=== PATIENT | male | born 1970 | race African-American/Black ===

== ENCOUNTER 2017-01-14 10:48 | Inpatient (IN) ==
[2017-01-14] MEDS ORDERED: ACETAMINOPHEN 325 MG TABLET PEG PRN (17:21)
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
[2017-01-14] MEDS: ENOXAPARIN 40 MG/0.4 ML SYRINGE SUBCUT SCH (18:20)
[2017-01-14 18:56] LABS: Basophils % 0.3 % (0.0-0.8); Eosinophils % 0.4 % (0.00-10.9); Hematocrit 32.5 VOL% (42.0-52.0); Hemoglobin 11.4 GM/DL (14.0-18.0); Immature Granulocytes % 0.5 %; Immature Granulocytes Absolute 0.05 #; Lymphocytes # 0.9 10*3/uL (1.4-4.0); Lymphocytes % 9.6 % (21.2-54.2); Mean Corpuscular HGB Conc 35.1 GM/DL (32-36); Mean Corpuscular Hemoglobin 29 PG (27-34); Mean Corpuscular Volume 83.8 FL (87-102); Monocytes # 0.9 10*3/uL (0.11-0.8); Monocytes % 9.3 % (1.7-12.7); Neutrophils # 7.5 10*3/uL (1.4-7.4); Neutrophils % 79.9 % (38.7-73.9); Platelet Count 398 T/CUMM (130-400); Red Blood Count 3.88 MC/CUMM (3.8-5.5); Red Cell Distribution Width 12.9 % (9.3-17.3); White Blood Count 9.4 T/CUMM (4-12)
[2017-01-14 19:19] LABS: Bilirubin,Total 0.4 MG/DL (0.2-1.0); Calcium 8.5 MG/DL (8.5-10.1); Magnesium 1.8 MG/DL (1.8-2.4); Osmolality,Calculated 256.1 MOS/KG (273-304); Total Protein 6.4 G/DL (6.4-8.3)
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
[2017-01-15] MEDS: ENOXAPARIN 40 MG/0.4 ML SYRINGE SUBCUT SCH (18:33)
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
[2017-01-16] MEDS: BACITRACIN OINT 0.9 GM PACK TOP SCH ×2 (10:33→20:22)
--- NOTE | 2017-01-16 11:36 | General Surgery Consult Note ---
Assessment and Plan (1) Pain around PEG tube site Status: Acute Assessment and plan: The patient has pus draining around his gastrostomy tube. The flange on the tube was cinched down pretty tightly and I am concerned that may be his internal button has eroded through his gastric wall and caused an abscess there. I have ordered a CT scan with Gastrografin to further evaluate this to see if any further treatment is necessary. I would leave the tube clamped or put it on drainage for now. Current Visit: Yes History of Present Illness Chief complaint: Abdominal pain History of present illness: Mr. Tan is a 46 year old male who had a gastrostomy tube placed by corridor redevelopment manager less than 2 weeks ago at the [facility] and was admitted here with pain at the gastrostomy tube site. He does moan in pain but does not really communicate much with me otherwise. Nursing gave the history to me. Allergies Allergy/AdvReac Type Severity Reaction Status Date / Time Unable to Obtain Allergy Verified 01/14/17 16:55 Medical,Surgical,& Family Hx - Medical History Cardio: History of: Hypertension - Family History Family History: Reports;: Family Hypertension - Social History Smoking Status: Former smoker - Constitutional Constitutional: Present: as per HPI - EENT Nose, mouth and throat: Present: as per HPI - Cardiovascular Cardiovascular: Present: as per HPI - Respiratory Respiratory: Present: as per HPI - Gastrointestinal Gastrointestinal: Present: as per HPI - Genitourinary Genitourinary: Present: as per HPI - Musculoskeletal Musculoskeletal: Present: as per HPI - Neurological Neurological: Present: as per HPI - Endocrine Endocrine: Present: as per HPI Hematologic/Lymphatic: Present: as per HPI Exam - Constitutional Vitals: Period Temp Pulse Resp BP Sys/White Pulse Ox Last 24 Hr 97.4 F-99.9 F 68-95 18-22 135-174/91-106 96-100 General appearance: normal weight, no acute distress - Head Head exam: Present: normal inspection, normocephalic - Eye Eye exam: Present: EOMI - ENT ENT exam: Present: normal exam Mouth exam: Present: normal external inspection - Neck Neck exam: Present: normal inspection, trachea midline - Respiratory Respiratory exam: Present: clear to auscultation bilaterally. Absent: accessory muscle use, chest wall tenderness - Cardiovascular Cardiovascular exam: Present: tachycardia. Absent: irregular rhythm, systolic murmur - GI/Abdominal GI/Abdominal exam: Present: guarding, tenderness, rebound, soft, other (There is pus coming out around the gastrostomy tube with significant erythema and induration there.) - Extremities Exam Extremities exam: Present: normal inspection, normal capillary refill - Back Exam Back exam: Present: normal inspection - Neurological Exam Neurological exam: Present: alert, oriented X3 Speech: Present: normal - Skin Skin exam: Present: normal color, warm Results - Labs CBC & BMP: 01/14/17 18:24 01/16/17 04:36
--- NOTE | 2017-01-16 14:58 | CT Report ---
CT abdomen pelvis w con Indication: Generalized abdominal pain. Comparison: None. Technique: CT of the abdomen and pelvis was performed following administration of intravenous contrast. The CT examination was performed using one or more of the following dose reduction techniques: Automatic exposure control, adjustment of the mA and kV according to patient size, or iterative reconstruction techniques. Findings: Atelectatic changes are present within the right as well as left lower lobe. The heart size is borderline. Liver demonstrates no focal abnormality. The gallbladder is unremarkable. Spleen is normal in size. Punctate calcification within the spleen suggest prior granulomatous disease. Pancreatic duct is minimally prominent. Extrahepatic bile duct is normal in size. This prominence of the main pancreatic duct is a nonspecific finding. The adrenal glands and kidneys demonstrate no acute findings. Gastrostomy tube is present which appears to terminate within the stomach. The stomach demonstrates no abnormality. Contrast is present within small bowel loops which have air-fluid levels within them and some of the loops particularly within the upper and right upper abdomen are upper limits of normal in size to minimally distended measuring 3.5 cm. Within the right pelvis, there is a [id number] amount of fluid. In addition, there is a round tubular structure measuring up to 12 mm in transverse dimension as demonstrated on image #121. This demonstrates peripheral enhancement and is compatible with appendix. Bowel loops within the pelvis are not well opacified. Large bowel demonstrates no significant abnormality. Soft tissues of the body wall, image bony structures, demonstrate no significant abnormalities. Impression: 1. The bowel gas pattern is somewhat nonspecific. Contrast is partially present throughout small bowel however small bowel loops demonstrate multiple air-fluid levels as well as. Upper limits of normal in size to minimally enlarged measuring 3.5 cm. Differential considerations include ileus as well as developing small bowel obstruction. A delayed KUB may be useful to further document progression of contrast through bowel. 2. A moderate to large amount of free fluid is suggested within the pelvis. Adjacent this free fluid or within this free fluid is a tubular blind structure which represents appendix. The appendiceal tip is enlarged measuring 12 mm within the described fluid. Acute tip appendicitis and adjacent abscess are not excluded. 3. Gastrostomy tube present without evidence of complication or leakage. Other findings as detailed. Findings were discussed with Dr. Valentine at 1455 hours, date of exam. 01/16/2017 2:46 PM PROCEDURE INTERPRETED AT [facility] DEPARTMENT OF RADIOLOGY Final Report Signed by: Dr. Donato [facility]
[2017-01-16] MEDS: SODIUM BICARBONATE 650 MG TABLET PEG SCH ×3 (15:51→22:09)
[2017-01-16] MEDS: SODIUM CHLORIDE 1 GM TABLET PO SCH (15:52)
[2017-01-16] MEDS: DEXTROSE 5% NACL 0.45% 1,000 ML IV SCH (16:15)
[2017-01-16] MEDS: ENOXAPARIN 40 MG/0.4 ML SYRINGE SUBCUT SCH (17:58)
[2017-01-16] MEDS: PIPERACILLIN/TAZOBACTAM 3,375 MG in SODIUM CHLORIDE 0.9% 100 ML IV SCH (18:00)
[2017-01-17] MEDS: PIPERACILLIN/TAZOBACTAM 3,375 MG in SODIUM CHLORIDE 0.9% 100 ML IV SCH ×2 (02:12→10:23)
[2017-01-17] MEDS: DEXTROSE 5% NACL 0.45% 1,000 ML IV SCH (07:20)
[2017-01-17 07:48] LABS: Basophils % 0.5 % (0.0-0.8); Eosinophils # 0.1 10*3/uL (0.0-0.87); Eosinophils % 1.5 % (0.00-10.9); Hematocrit 30.7 VOL% (42.0-52.0); Hemoglobin 10.9 GM/DL (14.0-18.0); Immature Granulocytes % 0.5 %; Immature Granulocytes Absolute 0.03 #; Lymphocytes # 1.1 10*3/uL (1.4-4.0); Lymphocytes % 16.3 % (21.2-54.2); Mean Corpuscular HGB Conc 35.5 GM/DL (32-36); Mean Corpuscular Hemoglobin 29 PG (27-34); Mean Corpuscular Volume 82.7 FL (87-102); Monocytes # 0.7 10*3/uL (0.11-0.8); Monocytes % 10.8 % (1.7-12.7); Neutrophils # 4.6 10*3/uL (1.4-7.4); Neutrophils % 70.4 % (38.7-73.9); Platelet Count 370 T/CUMM (130-400); Red Blood Count 3.71 MC/CUMM (3.8-5.5); Red Cell Distribution Width 12.7 % (9.3-17.3); White Blood Count 6.6 T/CUMM (4-12)
[2017-01-17 08:21] LABS: Calcium 8.9 MG/DL (8.5-10.1); Magnesium 1.8 MG/DL (1.8-2.4); Osmolality,Calculated 251.5 MOS/KG (273-304); Potassium 4.3 MMOL/L (3.5-5.1)
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
[2017-01-17] MEDS: cloNIDine 0.3 MG/24 HR PATCH TRANSDERM SCH (11:03)
[2017-01-17] MEDS: BACITRACIN OINT 0.9 GM PACK TOP SCH ×2 (11:03→21:49)
[2017-01-17] MEDS: SODIUM CHLORIDE 1 GM TABLET PO SCH (11:03)
[2017-01-17] MEDS: CEFUROXIME 50 MG/ML 100 ML/BOTTLE PEG SCH ×2 (11:59→21:49)
[2017-01-17] MEDS: SODIUM BICARBONATE 650 MG TABLET PEG SCH (12:06)
--- NOTE | 2017-01-17 12:21 | General Surgery Progress Note ---
Assessment and Plan (1) Pain around PEG tube site Status: Acute Assessment and plan: The patient will be treated with antibiotics for his abscess around his gastrostomy tube. I do not believe he has appendicitis. He is responding to antibiotics so we will transition to p.o. and stop his IV antibiotics. His PEG tube can be used for meds and flushes but I would not start tube feeds until we can get a look internally with an endoscopy in the next couple days to make sure that the button of the PEG tube has not caused necrosis of the gastric wall. I will continue to follow him. He is having bowel movements per the nursing so I do not think we need to worry about bowel obstruction in regards to some of the CT findings. Current Visit: Yes Subjective Patient reports: Present: no new complaints, afebrile Narrative: The patient was evaluated with a CT scan yesterday which showed no intra- abdominal abscess or fluid collections around the gastrostomy tube site. There was some question of appendicitis and some free fluid in the pelvis but no surrounding inflammatory changes. The patient is completely asymptomatic in the right lower quadrant. His wound looks a lot better today after draining the purulence around the side of the tube. He has been placed on cefuroxime by PEG tube because of inadequate IV access. Exam - Constitutional Vitals: Period Temp Pulse Resp BP Sys/White Pulse Ox Last 24 Hr 98 F-99.2 F 62-70 18-20 157-168/93-95 98-99 General appearance: normal weight, no acute distress - Head Head exam: Present: normal inspection, normocephalic - Eye Eye exam: Present: EOMI Pupils: Present: ANDREW - ENT ENT exam: Present: normal exam Mouth exam: Present: normal external inspection - Neck Neck exam: Present: normal inspection, trachea midline - Respiratory Respiratory exam: Present: clear to auscultation bilaterally. Absent: accessory muscle use, chest wall tenderness - Cardiovascular Cardiovascular exam: Present: RRR. Absent: systolic murmur, tachycardia - GI/Abdominal GI/Abdominal exam: Present: tenderness, soft, other (There is much less induration and cellulitis around the PEG tube. There is no further purulent drainage. The patient is completely nontender in the right lower quadrant.) - Extremities Exam Extremities exam: Present: normal inspection, normal capillary refill - Back Exam Back exam: Present: normal inspection - Neurological Exam Neurological exam: Present: alert, oriented X3 Speech: Present: normal - Skin Skin exam: Present: normal color, warm Results - Labs CBC & BMP: 01/17/17 07:16 01/17/17 07:16 - Diagnostic Findings Procedure: CT Abdomen and Pelvis: image reviewed by me, report reviewed by me ( Per my review, the appendix appears slightly enlarged but there is no surrounding inflammatory changes. There is some fluid in the pelvis. Is no leakage around the gastrostomy tube.)
[2017-01-17] MEDS: SODIUM BICARBONATE 650 MG TABLET PO SCH ×2 (14:50→21:47)
[2017-01-17] MEDS: ENOXAPARIN 40 MG/0.4 ML SYRINGE SUBCUT SCH (17:12)
[2017-01-18 05:33] LABS: Basophils # 0.1 10*3/uL (0.0-0.2); Basophils % 1.2 % (0.0-0.8); Eosinophils # 0.1 10*3/uL (0.0-0.87); Eosinophils % 2.6 % (0.00-10.9); Hematocrit 33.7 VOL% (42.0-52.0); Hemoglobin 11.5 GM/DL (14.0-18.0); Immature Granulocytes % 0.4 %; Immature Granulocytes Absolute 0.02 #; Lymphocytes % 20.1 % (21.2-54.2); Mean Corpuscular HGB Conc 34.1 GM/DL (32-36); Mean Corpuscular Hemoglobin 29 PG (27-34); Mean Corpuscular Volume 83.4 FL (87-102); Mean Platelet Volume 9.3 FL (9.6-12.0); Monocytes # 0.7 10*3/uL (0.11-0.8); Monocytes % 14.2 % (1.7-12.7); Neutrophils % 61.5 % (38.7-73.9); Platelet Count 388 T/CUMM (130-400); Red Blood Count 4.04 MC/CUMM (3.8-5.5); Red Cell Distribution Width 12.7 % (9.3-17.3); White Blood Count 4.9 T/CUMM (4-12)
[2017-01-18 06:02] LABS: Calcium 9.2 MG/DL (8.5-10.1); Osmolality,Calculated 254.2 MOS/KG (273-304); Potassium 4.7 MMOL/L (3.5-5.1)
--- NOTE | 2017-01-18 07:25 | General Surgery Progress Note ---
Assessment and Plan (1) Pain around PEG tube site Status: Acute Assessment and plan: I will discuss the patient's care with Dr. Ruvalcaba today. I would prefer to get an endoscopy prior to starting tube feeds to make sure that there is no necrosis of the gastric wall. Otherwise continue current care and antibiotic. Current Visit: Yes Subjective Patient reports: Present: no new complaints, flatus, bowel movement, afebrile. Absent: blood in stool Exam - Constitutional Vitals: Period Temp Pulse Resp BP Sys/White Pulse Ox Last 24 Hr 97.5 F-99.4 F 65-94 17-20 135-170/89-95 97-100 General appearance: normal weight, no acute distress - Head Head exam: Present: normal inspection, normocephalic - Eye Eye exam: Present: EOMI - ENT ENT exam: Present: normal exam Mouth exam: Present: normal external inspection, normal voice - Neck Neck exam: Present: normal inspection, trachea midline - Respiratory Respiratory exam: Present: clear to auscultation bilaterally. Absent: accessory muscle use, chest wall tenderness - Cardiovascular Cardiovascular exam: Present: RRR. Absent: systolic murmur, tachycardia - GI/Abdominal GI/Abdominal exam: Present: normal bowel sounds, tenderness (The patient is color depositing machine tender around the PEG tube site), soft, other (The PEG tube site has no erythema or induration today. There is no further purulent drainage. The flange was tightened back down just a little bit to about 3 cm.) - Extremities Exam Extremities exam: Present: normal inspection, normal capillary refill - Back Exam Back exam: Present: normal inspection - Neurological Exam Neurological exam: Present: alert Speech: Present: normal - Skin Skin exam: Present: normal color, warm Results - Labs CBC & BMP: 01/18/17 04:38 01/18/17 04:38
--- NOTE | 2017-01-18 10:00 | Gastrointestinal Progress Note ---
Assessment and Plan (1) Pain around PEG tube site Status: Acute Assessment and plan: 01/18-Less discomfort noted with exam from admission. Afebrile without leukocytosis. 2 feedings to be restarted today and continue to assess. Plan an addendum to followed by Dr. Ruvalcaba. Current Visit: Yes Gastroenterology - PN: Subj Interval history: CC: Abdominal pain/questionable PEG tube infection Patient is seen, opens eyes to verbal stimuli but no verbal communication. Abdomen is soft, nontender. Patient does not appear to react to examination of his PEG tube today. No active draining noted at site today. Tube feedings are being held at present time however Dr. Ruvalcaba has discussed with Dr. Valentine regarding this and his tube feedings are to be restarted today. If patient tolerates these and we will hold off on endoscopy at this time abdomen is soft, nontender. He has no leukocytosis and is afebrile today. Sodium level is noted at 127. ROS: Denies shortness of breath or chest pain. Exam (Progress Note) - Constitutional Vitals: Period Temp Pulse Resp BP Sys/White Pulse Ox Last 24 Hr 97.5 F-99.4 F 65-94 17-20 135-170/89-95 97-100 General appearance: no acute distress, under weight - Head Head exam: Present: normal inspection, normocephalic - Eye Eye exam: Present: other (Lids and conjunctive are unremarkable). Absent: scleral icterus - ENT ENT exam: Present: normal exam, normal oropharynx - Neck Neck exam: Present: normal inspection - Respiratory Respiratory exam: Present: clear to auscultation bilaterally. Absent: rales, rhonchi, wheezes - Cardiovascular Cardiovascular exam: Present: regular rate and rhythm. Absent: diastolic murmur , JVD, systolic murmur - GI/Abdominal GI/Abdominal exam: Present: normal bowel sounds, soft. Absent: ascites, distended, mass, organomegaly, tenderness - Extremities Exam Extremities exam: Present: normal inspection, full ROM - Back Exam Back exam: Present: normal inspection - Neurological Exam Neurological exam: Present: alert, altered - Psychiatric Psychiatric exam: Present: normal affect, other - Skin Skin exam: Present: normal color, warm, dry Results - Labs CBC & BMP: 01/18/17 04:38 01/18/17 04:38 Lab Results: I have reviewed the past 24 hour labs
[2017-01-18] MEDS: SODIUM BICARBONATE 650 MG TABLET PO SCH ×3 (10:14→20:58)
[2017-01-18] MEDS: BACITRACIN OINT 0.9 GM PACK TOP SCH ×2 (10:14→20:59)
[2017-01-18] MEDS: CEFUROXIME 50 MG/ML 100 ML/BOTTLE PEG SCH ×2 (10:14→20:58)
[2017-01-18] MEDS: SODIUM CHLORIDE 1 GM TABLET PO SCH (10:14)
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
[2017-01-18] MEDS ORDERED: TUBERCULIN SKIN TEST 0.1 ML SYRINGE INTRADERM ONE (15:29)
--- NOTE | 2017-01-18 15:30 | Case Mgmt Physician Query Form ---
TB Signs and Symptoms Screening ([place]) INSTRUCTIONS: To be completed annually on residents/staff with a significant Tuberculin Skin Test (TST) upon admission/hire or a prior significant TST. To be completed on all staff at hire. Please respond to each listed symptom with an (X) in either the "YES" or "NO" box. Do you currently have any of the following symptoms: YES NO PT UNABLE TO COMMUNICATE ( ) ( ) A cough If yes, is it: ( ) Productive ( ) Non- productive ( ) ( ) Hemoptysis (spitting up blood) ( ) ( ) Chest pains ( ) ( ) Weight Loss ( ) ( x) Fever ( ) ( ) Night Sweats ( ) ( ) Weakness ( ) ( ) Loss of Appetite ( ) ( ) Difficulty Breathing If you answered YES" to any of the above questions, how long have symptoms been present? Comments: If you have any questions, please contact me. Thank you, Lucía PIMENTEL P: [phone] F: [phone] E: [email or web address]
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
--- NOTE | 2017-01-18 16:44 | XRay Report ---
XR chest 1V Indication: jail placement Comparison: Chest x-ray 10/11/2013 Technique: Portable AP chest was performed. Findings: Heart size, mediastinal contour, and hilar structures demonstrate no significant abnormalities. The lung parenchyma is clear. Bones and soft tissues demonstrate no significant abnormalities. Impression: 1. No evidence of acute pathology. 01/18/2017 4:41 PM PROCEDURE INTERPRETED AT [facility] DEPARTMENT OF RADIOLOGY Final Report Signed by: Dr. Donato Wheeler
--- NOTE | 2017-01-18 16:52 | CT Report ---
History: Traumatic brain injury. Subarachnoid hemorrhage. Date: 01/18/2017 Study: CT head without contrast Comparison exam: CT head October 11, 2013. The patient reportedly has had numerous brain imaging studies performed at [facility] earlier this month, though none of those studies are currently available for direct visual comparison. Transaxial CT sections were obtained through the head without IV contrast. This CT exam was performed using one or more the following dose reduction techniques: Automated exposure control, adjustment of the MA and/or KV according to patient size, or use of iterative reconstruction technique. There is a hyperdense parenchymal hematoma in the left temporal lobe measuring at least 43 x 26 mm maximum dimensions. There is some mild surrounding vasogenic edema. There is no parenchymal hemorrhage otherwise. There is a small subacute subdural hematoma in the left parietal convexity area, hypodense to brain and minimally hyperdense to CSF, measuring roughly 4.7 mm transverse thickness. There is some mild residual 5.2 mm [id number] midline shift. The basal cisterns are still well-maintained. There are some occasional scattered subcortical and subependymal punctate calcifications as on the [address] Consider underlying calcified granuloma formation as well as calcified tubers as before. There is a nondisplaced fracture through the lateral wall of the right orbit posteriorly, presumably subacute. There is some residual mild right frontal scalp soft tissue swelling and contusion. Impression: 4.3 cm hematoma left temporal lobe, presumably posttraumatic 5 mm [id number] midline shift Subacute left parietal subdural hematoma Previous outside studies from [facility] are not currently available for comparison Subacute fracture lateral wall right orbit posteriorly PROCEDURE INTERPRETED AT [facility] DEPARTMENT OF RADIOLOGY Final Report Signed by: Dr. Hope Ruvalcaba
[2017-01-18] MEDS: ENOXAPARIN 40 MG/0.4 ML SYRINGE SUBCUT SCH (18:14)
[2017-01-19 05:59] LABS: Calcium 9.2 MG/DL (8.5-10.1); Osmolality,Calculated 255.2 MOS/KG (273-304); Potassium 4.7 MMOL/L (3.5-5.1)
--- NOTE | 2017-01-19 07:19 | General Surgery Progress Note ---
Assessment and Plan (1) Pain around PEG tube site Status: Acute Assessment and plan: I had reordered tube feeds yesterday but none are hanging this morning. I am not sure what happened on this. There were no nurses rounding with me today and the patient could not give me a history. I will sign off at this time. It is okay to resume tube feeds through the PEG tube. I would recommend treating the patient with a course of 2 weeks of antibiotics to cover gram-negative and anaerobic bacteria. Call back with any questions. Current Visit: Yes Subjective Patient reports: Present: no new complaints, afebrile. Absent: vomiting Exam - Constitutional Vitals: Period Temp Pulse Resp BP Sys/White Pulse Ox Last 24 Hr 98.2 F-99.1 F 59-79 18-20 112-147/66-90 96-100 General appearance: normal weight, no acute distress - Head Head exam: Present: normal inspection, normocephalic - Eye Eye exam: Present: EOMI Pupils: Present: ANDREW - ENT ENT exam: Present: normal exam Mouth exam: Present: normal external inspection, normal voice - Neck Neck exam: Present: normal inspection, trachea midline - Respiratory Respiratory exam: Present: clear to auscultation bilaterally. Absent: accessory muscle use, chest wall tenderness - Cardiovascular Cardiovascular exam: Present: RRR. Absent: systolic murmur, tachycardia - GI/Abdominal GI/Abdominal exam: Present: soft, other (The prior area of cellulitis around the PEG tube is completely resolved and there is no further purulent drainage.) . Absent: tenderness, rebound - Extremities Exam Extremities exam: Present: normal inspection, normal capillary refill - Back Exam Back exam: Present: normal inspection - Neurological Exam Neurological exam: Present: alert, oriented X3 Speech: Present: normal - Skin Skin exam: Present: normal color, warm Results - Labs CBC & BMP: 01/18/17 04:38 01/19/17 05:10
[2017-01-19] MEDS: CEFUROXIME 50 MG/ML 100 ML/BOTTLE PEG SCH ×2 (10:07→21:37)
[2017-01-19] MEDS: SODIUM CHLORIDE 1 GM TABLET PO SCH (10:07)
[2017-01-19] MEDS: BACITRACIN OINT 0.9 GM PACK TOP SCH ×2 (10:07→21:38)
[2017-01-19] MEDS: SODIUM BICARBONATE 650 MG TABLET PO SCH ×3 (10:07→21:37)
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
--- NOTE | 2017-01-19 16:15 | Neurology Progress Note ---
Neurology - PN : Subjective Interval history: Patient seems to be doing okay. Repeat CAT scan results noted. He is quite impaired cognitively at this point Exam (Progress Note) - Constitutional Vitals: Period Temp Pulse Resp BP Sys/White Pulse Ox Last 24 Hr 97.5 F-99.1 F 59-73 18-20 92-136/57-87 96-100 Exam: GENERAL: Patient is in no acute distress. NECK: Neck is supple. There is no JVD. No carotid bruits present. No thyroid masses. CVS: First and second heart sounds are normal. There is no S3 present. Regular rate and rhythm. RESPIRATORY: Lungs are clear to auscultation without any rales or rhonchi. ABDOMEN: Soft and non-tender. Bowel sounds are present. There is no hepatosplenomegaly. EXT: There is no palpable edema. Peripheral pulses are present. Skin: No rashes Central Nervous system: General: Alert, awake Speech: Nonfluent Comprehension: Impaired Facial expressions: Normal Cranial Nerves: Pupils are equally reactive to light. Extraocular movements are intact. No facial asymmetry is seen Motor: Bulk and Tone is normal. Strength unable to assess due to poor cooperation Sensory: Unreliable Reflexes: 2+ and symmetrical Cerebellar function: Cannot be assessed Toes: Equivocal Gait: Cannot be assessed Results - Labs CBC & BMP: 01/18/17 04:38 01/19/17 05:10 Assessment and Plan (1) Traumatic brain injury Status: Acute Assessment and plan: continue ST, PT and OT. Cognition probably will improve once blood gets reabsorbed completely. Watch for seizures. Current Visit: Yes Qualifiers: Encounter type: initial encounter
[2017-01-19] MEDS: ENOXAPARIN 40 MG/0.4 ML SYRINGE SUBCUT SCH ×2 (16:43→17:44)
[2017-01-20] MEDS: CEFUROXIME 50 MG/ML 100 ML/BOTTLE PEG SCH ×2 (09:31→22:04)
[2017-01-20] MEDS: SODIUM BICARBONATE 650 MG TABLET PO SCH ×3 (09:31→22:06)
[2017-01-20] MEDS: BACITRACIN OINT 0.9 GM PACK TOP SCH ×2 (09:31→22:10)
[2017-01-20] MEDS: SODIUM CHLORIDE 1 GM TABLET PO SCH (09:31)
--- NOTE | 2017-01-20 15:52 | Neurology Progress Note ---
Neurology - PN : Subjective Interval history: Patient seems to be doing a little better. Less agitated and restless. No new problems reported. No seizures. Exam (Progress Note) - Constitutional Vitals: Period Temp Pulse Resp BP Sys/White Pulse Ox Last 24 Hr 96.7 F-98.9 F 58-78 17-20 100-121/57-74 99-100 Exam: GENERAL: Patient is in no acute distress. NECK: Neck is supple. There is no JVD. No carotid bruits present. No thyroid masses. CVS: First and second heart sounds are normal. There is no S3 present. Regular rate and rhythm. RESPIRATORY: Lungs are clear to auscultation without any rales or rhonchi. ABDOMEN: Soft and non-tender. Bowel sounds are present. There is no hepatosplenomegaly. EXT: There is no palpable edema. Peripheral pulses are present. Skin: No rashes Central Nervous system: General: Alert, awake Speech: Nonfluent Comprehension: Impaired Facial expressions: Normal Cranial Nerves: Pupils are equally reactive to light. Extraocular movements are intact. No facial asymmetry is seen Motor: Bulk and Tone is normal. Strength unable to assess due to poor cooperation Sensory: Unreliable Reflexes: 2+ and symmetrical Cerebellar function: Cannot be assessed Toes: Equivocal Gait: Cannot be assessed Results - Labs CBC & BMP: 01/18/17 04:38 01/19/17 05:10 Assessment and Plan (1) Traumatic brain injury Status: Acute Assessment and plan: continue ST, PT and OT. Cognition probably will improve once blood gets reabsorbed completely. No further neuro recommendations. Sign off please call as needed Current Visit: Yes Qualifiers: Encounter type: initial encounter
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
[2017-01-20] MEDS: ENOXAPARIN 40 MG/0.4 ML SYRINGE SUBCUT SCH (16:36)
[2017-01-21 06:34] LABS: Phosphorous 4.1 MG/DL (2.5-4.9); Potassium 4.4 MMOL/L (3.5-5.1); Prealbumin 23.7 MG/DL (20-40)
[2017-01-21 06:47] LABS: Basophils % 0.8 % (0.0-0.8); Eosinophils # 0.1 10*3/uL (0.0-0.87); Eosinophils % 2.1 % (0.00-10.9); Hematocrit 33.2 VOL% (42.0-52.0); Hemoglobin 11.3 GM/DL (14.0-18.0); Immature Granulocytes % 0.8 %; Immature Granulocytes Absolute 0.04 #; Lymphocytes % 18.1 % (21.2-54.2); Mean Corpuscular Hemoglobin 29 PG (27-34); Mean Corpuscular Volume 84.3 FL (87-102); Mean Platelet Volume 9.1 FL (9.6-12.0); Monocytes # 0.6 10*3/uL (0.11-0.8); Monocytes % 11.5 % (1.7-12.7); Neutrophils # 3.5 10*3/uL (1.4-7.4); Neutrophils % 66.7 % (38.7-73.9); Platelet Count 326 T/CUMM (130-400); Red Blood Count 3.94 MC/CUMM (3.8-5.5); Red Cell Distribution Width 13.1 % (9.3-17.3); White Blood Count 5.2 T/CUMM (4-12)
[2017-01-21] MEDS: SODIUM BICARBONATE 650 MG TABLET PO SCH (08:50)
[2017-01-21] MEDS: SODIUM CHLORIDE 1 GM TABLET PO SCH (08:50)
[2017-01-21] MEDS: CEFUROXIME 50 MG/ML 100 ML/BOTTLE PEG SCH (10:36)
[2017-01-21] MEDS: BACITRACIN OINT 0.9 GM PACK TOP SCH (10:36)
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
[2017-01-21] MEDS: ENOXAPARIN 40 MG/0.4 ML SYRINGE SUBCUT SCH (17:25)
[2017-01-22] MEDS: CEFUROXIME 50 MG/ML 100 ML/BOTTLE PEG SCH ×3 (00:17→21:42)
[2017-01-22] MEDS: BACITRACIN OINT 0.9 GM PACK TOP SCH ×3 (00:17→21:42)
[2017-01-22 04:55] LABS: Calcium 8.7 MG/DL (8.5-10.1); Potassium 4.4 MMOL/L (3.5-5.1)
--- NOTE | 2017-01-22 14:21 | Hospitalist Progress Note ---
Assessment and Plan (1) Traumatic brain injury Status: Acute Assessment and plan: Patient post TBI awake and alert with improvement over last few days and the able to eat well. Hematoma left temporal lobe on CT scan. still not oriented being followed by Dr. Lopez. Current Visit: Yes Qualifiers: Encounter type: initial encounter (2) Anemia Status: Acute Assessment and plan: Stable Current Visit: Yes (3) Hyponatremia Status: Acute Assessment and plan: Resolved sodium level is stable Current Visit: Yes (4) Pain around PEG tube site Status: Acute Assessment and plan: Pain is resolved abdomen soft nontender Current Visit: Yes Hospitalist: Subjective Interval history: Remained alert. Unable to get subjective information he is still not able to answer questions except his name . He has been able to eat well. Feeding type is not being used Exam - Constitutional Vitals: Period Temp Pulse Resp BP Sys/White Pulse Ox Last 24 Hr 97.5 F-98.0 F 57-83 16-20 106-144/67-89 99-100 General appearance: no acute distress - Respiratory Respiratory exam: Present: clear to auscultation bilaterally. Absent: rales, rhonchi - Cardiovascular Cardiovascular exam: Present: regular rate and rhythm. Absent: tachycardia - GI/Abdominal GI/Abdominal exam: Present: normal bowel sounds, soft (Feeding tube in place). Absent: distended, tenderness - Neurological Exam Neurological exam: Present: other (Awake and alert but not able to follow commands and not oriented. He is not able to make meaningful conversation. Results - Labs CBC & BMP: 01/21/17 04:00 01/22/17 03:46 Lab Results: I have reviewed the past 24 hour labs
[2017-01-22] MEDS: ENOXAPARIN 40 MG/0.4 ML SYRINGE SUBCUT SCH (18:00)
[2017-01-23] MEDS: CEFUROXIME 50 MG/ML 100 ML/BOTTLE PEG SCH ×2 (09:56→21:51)
[2017-01-23] MEDS: BACITRACIN OINT 0.9 GM PACK TOP SCH ×2 (09:56→21:51)
--- NOTE | 2017-01-23 16:37 | Hospitalist Progress Note ---
Assessment and Plan (1) Traumatic brain injury Status: Acute Current Visit: Yes Qualifiers: Encounter type: initial encounter (2) Hyponatremia Status: Acute Current Visit: Yes (3) Anemia Status: Acute Current Visit: Yes Hospitalist: Subjective Interval history: No acute events overnight. Exam - Constitutional Vitals: Period Temp Pulse Resp BP Sys/White Pulse Ox Last 24 Hr 97.9 F-99.1 F 65-91 16-20 134-166/75-99 96-100 General appearance: normal weight - Head Head exam: Present: normocephalic, atraumatic - Eye Eye exam: Present: EOMI Pupils: Present: ANDREW - ENT ENT exam: Present: normal exam - Neck Neck exam: Present: normal inspection - Respiratory Respiratory exam: Present: clear to auscultation bilaterally. Absent: wheezes - Cardiovascular Cardiovascular exam: Present: regular rate and rhythm - GI/Abdominal GI/Abdominal exam: Present: normal bowel sounds, soft. Absent: tenderness, rebound - Extremities Exam Extremities exam: Present: normal inspection - Back Exam Back exam: Present: normal inspection - Neurological Exam Neurological exam: Present: alert - Psychiatric Psychiatric exam: Present: normal affect, normal mood - Skin Skin exam: Present: warm, intact Results - Labs CBC & BMP: 01/21/17 04:00 01/22/17 03:46
[2017-01-23] MEDS: ENOXAPARIN 40 MG/0.4 ML SYRINGE SUBCUT SCH (18:00)
[2017-01-24] MEDS: cloNIDine 0.3 MG/24 HR PATCH TRANSDERM SCH (10:47)
[2017-01-24] MEDS: CEFUROXIME 50 MG/ML 100 ML/BOTTLE PEG SCH ×2 (10:48→20:37)
[2017-01-24] MEDS: BACITRACIN OINT 0.9 GM PACK TOP SCH ×2 (10:48→20:37)
--- NOTE | 2017-01-24 10:51 | Hospitalist Progress Note ---
Assessment and Plan (1) Traumatic brain injury Status: Acute Current Visit: Yes Qualifiers: Encounter type: initial encounter (2) Hyponatremia Status: Acute Current Visit: Yes (3) Anemia Status: Acute Current Visit: Yes Hospitalist: Subjective Interval history: No acute events overnight. Patient resting comfortably in bed. Exam - Constitutional Vitals: Period Temp Pulse Resp BP Sys/White Pulse Ox Last 24 Hr 96.7 F-98.4 F 69-91 16-20 134-162/76-98 98-100 General appearance: normal weight - Head Head exam: Present: normocephalic, atraumatic - Eye Eye exam: Present: EOMI Pupils: Present: ANDREW - ENT ENT exam: Present: normal exam - Neck Neck exam: Present: normal inspection - Respiratory Respiratory exam: Present: clear to auscultation bilaterally. Absent: wheezes - Cardiovascular Cardiovascular exam: Present: regular rate and rhythm - GI/Abdominal GI/Abdominal exam: Present: normal bowel sounds, soft. Absent: tenderness, rebound - Extremities Exam Extremities exam: Present: normal inspection - Back Exam Back exam: Present: normal inspection - Neurological Exam Neurological exam: Present: alert - Psychiatric Psychiatric exam: Present: normal affect - Skin Skin exam: Present: warm, intact Results - Labs CBC & BMP: 01/21/17 04:00 01/22/17 03:46
[2017-01-24] MEDS: ENOXAPARIN 40 MG/0.4 ML SYRINGE SUBCUT SCH ×2 (17:25→17:27)
[2017-01-25] MEDS: CEFUROXIME 50 MG/ML 100 ML/BOTTLE PEG SCH ×2 (09:25→21:47)
[2017-01-25] MEDS: BACITRACIN OINT 0.9 GM PACK TOP SCH ×2 (09:25→21:47)
--- NOTE | 2017-01-25 14:42 | Hospitalist Progress Note ---
Assessment and Plan (1) Traumatic brain injury Status: Acute Current Visit: Yes Qualifiers: Encounter type: initial encounter (2) Hyponatremia Status: Acute Current Visit: Yes (3) Anemia Status: Acute Current Visit: Yes Hospitalist: Subjective Interval history: No acute events overnight. Today patient moving around in bed, out of breath on my exam. Able to focus and answer questions. Exam - Constitutional Vitals: Period Temp Pulse Resp BP Sys/White Pulse Ox Last 24 Hr 96.6 F-98.8 F 64-86 18-20 126-144/59-92 93-100 General appearance: under weight - Head Head exam: Present: normocephalic, atraumatic - Eye Eye exam: Present: EOMI Pupils: Present: ANDREW - ENT ENT exam: Present: normal exam - Neck Neck exam: Present: normal inspection - Respiratory Respiratory exam: Present: clear to auscultation bilaterally. Absent: rhonchi, wheezes - Cardiovascular Cardiovascular exam: Present: regular rate and rhythm - GI/Abdominal GI/Abdominal exam: Present: normal bowel sounds, soft. Absent: tenderness, rebound - Extremities Exam Extremities exam: Present: normal inspection - Back Exam Back exam: Present: normal inspection - Neurological Exam Neurological exam: Present: alert, altered - Psychiatric Psychiatric exam: Present: normal affect, normal mood - Skin Skin exam: Present: warm, intact Results - Labs CBC & BMP: 01/21/17 04:00 01/22/17 03:46
[2017-01-25] MEDS: ENOXAPARIN 40 MG/0.4 ML SYRINGE SUBCUT SCH (17:27)
[2017-01-26 05:06] LABS: Basophils % 0.4 % (0.0-0.8); Eosinophils # 0.2 10*3/uL (0.0-0.87); Eosinophils % 4.1 % (0.00-10.9); Hematocrit 33.3 VOL% (42.0-52.0); Hemoglobin 11.2 GM/DL (14.0-18.0); Immature Granulocytes % 0.4 %; Immature Granulocytes Absolute 0.02 #; Lymphocytes # 1.5 10*3/uL (1.4-4.0); Lymphocytes % 31.3 % (21.2-54.2); Mean Corpuscular HGB Conc 33.6 GM/DL (32-36); Mean Corpuscular Hemoglobin 29 PG (27-34); Mean Corpuscular Volume 85.2 FL (87-102); Mean Platelet Volume 9.5 FL (9.6-12.0); Monocytes # 0.5 10*3/uL (0.11-0.8); Monocytes % 9.9 % (1.7-12.7); Neutrophils # 2.6 10*3/uL (1.4-7.4); Neutrophils % 53.9 % (38.7-73.9); Platelet Count 228 T/CUMM (130-400); Red Blood Count 3.91 MC/CUMM (3.8-5.5); Red Cell Distribution Width 13.2 % (9.3-17.3); White Blood Count 4.8 T/CUMM (4-12)
[2017-01-26 05:31] LABS: Magnesium 1.8 MG/DL (1.8-2.4); Osmolality,Calculated 260.8 MOS/KG (273-304); Potassium 4.7 MMOL/L (3.5-5.1)
[2017-01-26] MEDS: CEFUROXIME 50 MG/ML 100 ML/BOTTLE PEG SCH ×2 (09:34→21:13)
[2017-01-26] MEDS: BACITRACIN OINT 0.9 GM PACK TOP SCH ×2 (09:38→21:13)
--- NOTE | 2017-01-26 12:01 | Hospitalist Progress Note ---
Assessment and Plan (1) Traumatic brain injury Status: Acute Current Visit: Yes Qualifiers: Encounter type: initial encounter (2) Hyponatremia Status: Acute Current Visit: Yes (3) Anemia Status: Acute Current Visit: Yes Hospitalist: Subjective Interval history: No acute events overnight. Patient sitting up in bed, looking at the paper. Reports that he would like a cigarette. Will order nicotine patch. Waiting on placement. Exam - Constitutional Vitals: Period Temp Pulse Resp BP Sys/White Pulse Ox Last 24 Hr 96.7 F-98.5 F 61-67 16-20 124-173/75-101 99-100 General appearance: under weight - Head Head exam: Present: normocephalic, atraumatic - Eye Eye exam: Present: EOMI Pupils: Present: ANDREW - ENT ENT exam: Present: normal exam - Neck Neck exam: Present: normal inspection - Respiratory Respiratory exam: Present: clear to auscultation bilaterally. Absent: rhonchi, wheezes - Cardiovascular Cardiovascular exam: Present: regular rate and rhythm - GI/Abdominal GI/Abdominal exam: Present: normal bowel sounds, soft - Back Exam Back exam: Present: normal inspection - Neurological Exam Neurological exam: Present: alert - Psychiatric Psychiatric exam: Present: normal affect, normal mood - Skin Skin exam: Present: warm, intact Results - Labs CBC & BMP: 01/26/17 04:30 01/26/17 04:30
[2017-01-26] MEDS: NICOTINE 7 MG/24 HR PATCH TRANSDERM SCH (16:55)
[2017-01-26] MEDS: ENOXAPARIN 40 MG/0.4 ML SYRINGE SUBCUT SCH (16:58)
[2017-01-27 05:56] LABS: Calcium 9.1 MG/DL (8.5-10.1); Osmolality,Calculated 266.7 MOS/KG (273-304); Potassium 4.3 MMOL/L (3.5-5.1)
[2017-01-27] MEDS: NICOTINE 7 MG/24 HR PATCH TRANSDERM SCH (08:55)
[2017-01-27] MEDS: BACITRACIN OINT 0.9 GM PACK TOP SCH ×2 (08:55→21:39)
[2017-01-27] MEDS: CEFUROXIME 50 MG/ML 100 ML/BOTTLE PEG SCH ×2 (08:56→21:39)
--- NOTE | 2017-01-27 14:36 | Hospitalist Progress Note ---
Assessment and Plan (1) Traumatic brain injury Status: Acute Current Visit: Yes Qualifiers: Encounter type: initial encounter (2) Hyponatremia Status: Acute Current Visit: Yes (3) Anemia Status: Acute Current Visit: Yes Hospitalist: Subjective Interval history: No acute events overnight. Patient awake and alert this afternoon. No complaints. Waiting on placement, has been difficulty to get the family involved in the insurance process. Exam - Constitutional Vitals: Period Temp Pulse Resp BP Sys/White Pulse Ox Last 24 Hr 96.9 F-99.4 F 66-87 18-20 117-154/76-94 99-100 General appearance: under weight - Head Head exam: Present: normocephalic, atraumatic - Eye Eye exam: Present: EOMI Pupils: Present: ANDREW - ENT ENT exam: Present: normal exam - Neck Neck exam: Present: normal inspection - Respiratory Respiratory exam: Present: clear to auscultation bilaterally. Absent: rhonchi, wheezes - Cardiovascular Cardiovascular exam: Present: regular rate and rhythm - GI/Abdominal GI/Abdominal exam: Present: normal bowel sounds, soft. Absent: tenderness, rebound - Extremities Exam Extremities exam: Present: normal inspection - Back Exam Back exam: Present: normal inspection - Neurological Exam Neurological exam: Present: alert, oriented X3 - Psychiatric Psychiatric exam: Present: normal affect, normal mood - Skin Skin exam: Present: warm, intact Results - Labs CBC & BMP: 01/26/17 04:30 01/27/17 05:09
[2017-01-27] MEDS: ENOXAPARIN 40 MG/0.4 ML SYRINGE SUBCUT SCH (18:47)
[2017-01-28] MEDS: CEFUROXIME 50 MG/ML 100 ML/BOTTLE PEG SCH ×2 (10:02→20:30)
[2017-01-28] MEDS: NICOTINE 7 MG/24 HR PATCH TRANSDERM SCH (10:02)
[2017-01-28] MEDS: BACITRACIN OINT 0.9 GM PACK TOP SCH ×2 (10:03→20:30)
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
[2017-01-28] MEDS: ENOXAPARIN 40 MG/0.4 ML SYRINGE SUBCUT SCH (16:58)
[2017-01-29 05:22] LABS: Basophils % 0.7 % (0.0-0.8); Eosinophils # 0.1 10*3/uL (0.0-0.87); Eosinophils % 3.1 % (0.00-10.9); Hematocrit 32.6 VOL% (42.0-52.0); Hemoglobin 11.2 GM/DL (14.0-18.0); Immature Granulocytes % 0.2 %; Immature Granulocytes Absolute 0.01 #; Lymphocytes # 1.5 10*3/uL (1.4-4.0); Lymphocytes % 34.9 % (21.2-54.2); Mean Corpuscular HGB Conc 34.4 GM/DL (32-36); Mean Corpuscular Hemoglobin 28 PG (27-34); Mean Corpuscular Volume 82.1 FL (87-102); Mean Platelet Volume 9.6 FL (9.6-12.0); Monocytes # 0.5 10*3/uL (0.11-0.8); Neutrophils % 48.1 % (38.7-73.9); Platelet Count 218 T/CUMM (130-400); Red Blood Count 3.97 MC/CUMM (3.8-5.5); White Blood Count 4.2 T/CUMM (4-12)
[2017-01-29 06:06] LABS: Calcium 8.7 MG/DL (8.5-10.1); Magnesium 1.9 MG/DL (1.8-2.4); Osmolality,Calculated 254.1 MOS/KG (273-304); Potassium 4.3 MMOL/L (3.5-5.1)
[2017-01-29] MEDS: NICOTINE 7 MG/24 HR PATCH TRANSDERM SCH (09:22)
[2017-01-29] MEDS: CEFUROXIME 50 MG/ML 100 ML/BOTTLE PEG SCH ×2 (09:22→20:55)
[2017-01-29] MEDS: BACITRACIN OINT 0.9 GM PACK TOP SCH ×2 (09:22→20:59)
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
[2017-01-29] MEDS: ENOXAPARIN 40 MG/0.4 ML SYRINGE SUBCUT SCH (17:02)
[2017-01-30 06:15] LABS: Calcium 8.9 MG/DL (8.5-10.1); Magnesium 1.6 MG/DL (1.8-2.4); Osmolality,Calculated 252.2 MOS/KG (273-304); Potassium 4.4 MMOL/L (3.5-5.1)
[2017-01-30] MEDS: CEFUROXIME 50 MG/ML 100 ML/BOTTLE PEG SCH ×2 (09:14→20:45)
[2017-01-30] MEDS: BACITRACIN OINT 0.9 GM PACK TOP SCH ×2 (09:15→20:45)
[2017-01-30] MEDS: NICOTINE 7 MG/24 HR PATCH TRANSDERM SCH (09:15)
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
[2017-01-30] MEDS: ENOXAPARIN 40 MG/0.4 ML SYRINGE SUBCUT SCH (16:55)
[2017-01-31] MEDS: BACITRACIN OINT 0.9 GM PACK TOP SCH ×2 (09:57→21:27)
[2017-01-31] MEDS: cloNIDine 0.3 MG/24 HR PATCH TRANSDERM SCH (09:57)
[2017-01-31] MEDS: NICOTINE 7 MG/24 HR PATCH TRANSDERM SCH (10:01)
[2017-01-31] MEDS: CEFUROXIME 50 MG/ML 100 ML/BOTTLE PEG SCH (10:03)
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
[2017-01-31] MEDS: ENOXAPARIN 40 MG/0.4 ML SYRINGE SUBCUT SCH (18:01)
[2017-02-01 06:10] LABS: Eosinophils # 0.1 10*3/uL (0.0-0.87); Eosinophils % 1.5 % (0.00-10.9); Hematocrit 32.9 VOL% (42.0-52.0); Hemoglobin 11.6 GM/DL (14.0-18.0); Immature Granulocytes % 0.5 %; Immature Granulocytes Absolute 0.02 #; Lymphocytes % 23.1 % (21.2-54.2); Mean Corpuscular HGB Conc 35.3 GM/DL (32-36); Mean Corpuscular Hemoglobin 28 PG (27-34); Mean Corpuscular Volume 80.4 FL (87-102); Mean Platelet Volume 9.2 FL (9.6-12.0); Monocytes # 0.6 10*3/uL (0.11-0.8); Monocytes % 14.8 % (1.7-12.7); Neutrophils # 2.4 10*3/uL (1.4-7.4); Neutrophils % 59.1 % (38.7-73.9); Platelet Count 218 T/CUMM (130-400); Red Blood Count 4.09 MC/CUMM (3.8-5.5); Red Cell Distribution Width 12.4 % (9.3-17.3); White Blood Count 4.1 T/CUMM (4-12)
[2017-02-01 06:39] LABS: Calcium 8.8 MG/DL (8.5-10.1); Magnesium 1.7 MG/DL (1.8-2.4); Osmolality,Calculated 241.1 MOS/KG (273-304); Potassium 4.4 MMOL/L (3.5-5.1)
[2017-02-01] MEDS: NICOTINE 7 MG/24 HR PATCH TRANSDERM SCH (09:00)
[2017-02-01] MEDS: BACITRACIN OINT 0.9 GM PACK TOP SCH ×2 (09:00→21:47)
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
[2017-02-01] MEDS ORDERED: SODIUM CHLORIDE 0.9% 1,000 ML IV SCH (13:30)
[2017-02-01] MEDS: ENOXAPARIN 40 MG/0.4 ML SYRINGE SUBCUT SCH (17:33)
[2017-02-01] MEDS: SODIUM CHLORIDE 1 GM TABLET PO SCH (17:33)
[2017-02-01 20:35] LABS: Free T4 (Free Thyroxine) 1.06 NG/DL (0.76-1.46); Thyroid Stimulating Hormone 0.49 uIU/ml (0.358-3.74)
[2017-02-02 08:50] LABS: Calcium 8.9 MG/DL (8.5-10.1); Magnesium 1.8 MG/DL (1.8-2.4); Osmolality,Calculated 239.2 MOS/KG (273-304); Potassium 4.5 MMOL/L (3.5-5.1)
[2017-02-02] MEDS: BACITRACIN OINT 0.9 GM PACK TOP SCH ×2 (08:52→20:25)
[2017-02-02] MEDS: NICOTINE 7 MG/24 HR PATCH TRANSDERM SCH (08:52)
[2017-02-02] MEDS: SODIUM CHLORIDE 1 GM TABLET PO SCH ×3 (08:52→20:25)
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
[2017-02-02] MEDS: ENOXAPARIN 40 MG/0.4 ML SYRINGE SUBCUT SCH (17:49)
[2017-02-03 06:04] LABS: Calcium 8.6 MG/DL (8.5-10.1); Magnesium 1.8 MG/DL (1.8-2.4); Osmolality,Calculated 236.3 MOS/KG (273-304); Potassium 4.4 MMOL/L (3.5-5.1)
[2017-02-03] MEDS: BACITRACIN OINT 0.9 GM PACK TOP SCH ×2 (09:55→22:43)
[2017-02-03] MEDS: SODIUM CHLORIDE 1 GM TABLET PO SCH ×3 (09:55→22:09)
[2017-02-03] MEDS: NICOTINE 7 MG/24 HR PATCH TRANSDERM SCH (09:56)
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
[2017-02-03] MEDS ORDERED: SODIUM CHLORIDE 3% INJ 500 ML IV SCH (12:30)
[2017-02-03] MEDS: cloNIDine 0.3 MG/24 HR PATCH TRANSDERM SCH (15:48)
[2017-02-03] MEDS: ENOXAPARIN 40 MG/0.4 ML SYRINGE SUBCUT SCH (15:49)
[2017-02-03] MEDS ORDERED: HALOPERIDOL 5 MG/ML AMP IM PRN (16:41)
[2017-02-03] MEDS ORDERED: LORazepam 2 MG/1 ML VIAL IM PRN (16:41)
[2017-02-04 06:07] LABS: Albumin 3.3 G/DL (3.4-5.0); Calcium 8.9 MG/DL (8.5-10.1); Magnesium 1.7 MG/DL (1.8-2.4); Osmolality,Calculated 240.1 MOS/KG (273-304); Potassium 4.7 MMOL/L (3.5-5.1)
[2017-02-04] MEDS: ENOXAPARIN 40 MG/0.4 ML SYRINGE SUBCUT SCH ×2 (08:15→17:52)
[2017-02-04] MEDS: DEMECLOCYCLINE 150 MG TABLET PO SCH (09:08)
[2017-02-04] MEDS: NICOTINE 7 MG/24 HR PATCH TRANSDERM SCH (09:13)
[2017-02-04] MEDS: SODIUM CHLORIDE 1 GM TABLET PO SCH ×3 (09:13→22:01)
[2017-02-04] MEDS: BACITRACIN OINT 0.9 GM PACK TOP SCH ×2 (09:13→22:02)
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
[2017-02-04] MEDS: MAGNESIUM OXIDE 400 MG TABLET PO SCH ×2 (15:25→22:01)
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
[2017-02-05 05:06] LABS: Calcium 8.8 MG/DL (8.5-10.1); Osmolality,Calculated 256.9 MOS/KG (273-304); Potassium 4.7 MMOL/L (3.5-5.1)
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
--- NOTE | 2017-02-05 08:42 | Nephrology Progress Note ---
Nephrology - PN: Subj Interval history: Mr. Tan is seen in follow-up of his SIADH. He is improved today with a serum sodium of 129. He is scheduled for discharge. I think he should continue with his modest fluid restriction. There is certainly hope that as his brain injury improved his SIADH will improve also. We will sign off thank you Exam (PN)-Nephrology - Vital Signs Vital signs: Period Temp Pulse Resp BP Sys/White Pulse Ox Last 24 Hr 97.6 F-98.7 F 52-85 16-20 116-164/73-101 98-100 - Lab 02/01/17 06:00 02/05/17 04:29 Most recent lab results Calcium 8.8 MG/DL (8.5-10.1) 02/05/17 04:29 Phosphorus 4.0 MG/DL (2.5-4.9) 02/04/17 04:42 Magnesium 2.0 MG/DL (1.8-2.4) 02/05/17 04:29 Assessment and Plan (1) SIADH (syndrome of inappropriate ADH production) Status: Acute Assessment and plan: Fluid restriction to 1 liter or less per 24hr. Current Visit: Yes (2) Traumatic brain injury Status: Acute Current Visit: Yes Qualifiers: Encounter type: initial encounter
[2017-02-05] MEDS: SODIUM CHLORIDE 1 GM TABLET PO SCH (09:38)
[2017-02-05] MEDS: MAGNESIUM OXIDE 400 MG TABLET PO SCH (09:39)
[2017-02-05] MEDS: NICOTINE 7 MG/24 HR PATCH TRANSDERM SCH (09:39)
[2017-02-05] MEDS: BACITRACIN OINT 0.9 GM PACK TOP SCH (09:39)
[2017-02-05 12:22] VITALS: BP 149/91
== END 2017-02-05 13:55 | disposition home health service (06) | DRG 55 ==
LOC: SUATTDRO 16:07 → N.4E 16:07
PROVIDERS: ADMIT Internal Medicine; ATTEND Internal Medicine